=== PATIENT | female | born 1945 | race Caucasian/White ===

== ENCOUNTER 2019-11-19 14:12 | Inpatient (IN) | payer MEDICARE ==
[~2019-11-19] VITALS: Ht 154.9 cm; Wt 53.7 kg
[2019-11-19] MEDS ORDERED: ASPIRIN E.C. 8181 MG PO (14:23)
[2019-11-19] MEDS ORDERED: NOVOLOG 100U100 U/ML SC (14:25)
[2019-11-19] MEDS ORDERED: MELATIN 3 MG-11 TAB PO (14:26)
[2019-11-19] MEDS ORDERED: FOLIC ACID1 MG PO (14:26)
[2019-11-19] MEDS ORDERED: LIPITOR 40MG TA40 MG PO (14:26)
[2019-11-19] MEDS ORDERED: NEXIUM 24HR20 M1 PO (14:28)
[2019-11-19] MEDS ORDERED: PROPRANOLOL HCL40 M2 PO (14:28)
[2019-11-19] MEDS ORDERED: LISINOPRIL20 MG PO (14:29)
[2019-11-19] MEDS ORDERED: LEVEMIR FLEX100 U/ML SQ (14:30)
--- NOTE | 2019-11-19 15:10 | NUR ---
ARRIVES TO ROOM 204 FOR SWINGBED ADMIT FROM [facility]. REQUIRES 2 STAFF ASSIST AND SEVERAL PROMPTS TO COMPLETE TRANSFER FROM [facility] TO W/C. [id number] ACCOMPANIES AND PROVIDES GOOD INFORMATION REGARDING PATIENT'S LIVING SITUATION AND HEALTH HISTORY.
[2019-11-19] MEDS ORDERED: VALIUM 5MG T5 MG/TAB PO (15:39)
--- NOTE | 2019-11-19 15:40 | NUR ---
ADMISSION ASSESSMENT COMPLETE. ALERT AND ORIENTATED. SPEECH CLEAR. TALKS SLOWLY DURING CONVERSATION. HARD OF HEARING; BILAT HEARING AIDES. WEARS GLASSES. PUPILS EQUAL AND BRISKLY REACTIVE TO LIGHT. BANDAID OVER UPPER LT CHEST PORT. HAND CEMENT FINISHING SUPERVISOR EQUAL AND WEAK. REQUIRES ASSISTANCE TO SIT UPRIGHT IN BED. LUNG SOUNDS CTA BILAT. BOWEL SOUNDS ACTIVE X4 QUADS. ABD SOFT AND NONTENDER. PER REPORT FROM NATALY SANCHEZ AT [facility], PATIENT HAD A BM LAST NIGHT. 1+ PITTING EDEMA NOTED TO BILAT ANKLES. PEDAL PULSES STRONG BILAT. SKIN TO FEET DRY AND FLAKING. THERE IS A SCABBED SCRATCH TO THE TOP RT FOOT. PATIENT AND [id number] BOTH VERBALIZE A GOAL TO RETURN HOME. PATIENT LIVES IN A ONE LEVEL HOME ALONE. ALTHOUGH, UNTIL RECENTLY, SHE LIVED WITH HER MOTHER. SHE IS NOW IN A FCI DUE TO DEMENTIA. PRIOR TO HOSPITALIZATION, WAS RECEIVING HOME CARE FOR MEAL ASSISTANCE AND HOUSE CLEANING. UNABLE TO RECALL COMPANY NAME, BUT KNOWS THE MAN IS NAMED [employer]. PATIENT HAS A BATH/SHOWER COMBO WITH A SEAT TO MANEUVER. [id number] REPORTS 2 WEEKS AGO PATIENT WAS AMBULATORY AROUND HER HOUSE WITH A WALKER WITH A HISTORY OF FALLS. GOES ON TO EXPLAIN THAT SHE HAS FALLEN BEFORE AND STAYED ON THE FLOOR FOR 15 HOURS BEFORE OBTAINING HELP; EVEN WITH A CELL PHONE IN REACH. MOST RECENT FALL ALSO ENDED WITH PATIENT STAYING ON THE FLOOR FOR AN UNKNOWN AMOUNT OF TIME. [id number] BELIEVES THIS IS WHY SHE IS SO WEAK. THEY ALSO REPORT TAKING ZOLOFT 100MG PO DAILY AND THIS WAS NOT GIVEN DURING HER HOSPITAL STAY IN [place].
--- NOTE | 2019-11-19 15:45 | NUR ---
HAS DENTURES, BUT DOES NOT WEAR THE BOTTOM ONES.
[2019-11-19 15:47] VITALS: BP 165/76
[2019-11-19 16:06] VITALS: BP 165/76
--- NOTE | 2019-11-19 16:10 | NUR ---
PATIENT HAS PORT TO LT UPPER CHEST. LAB REQUEST TO ACCESS. ATTEMPT X2 WITH NO SUCCESSFUL BLOOD RETURN. PORT FEELS IF IT IS UPSIDE DOWN. RACHELLE BUSINESS COMMUNICATIONS INSTRUCTOR TO BEDSIDE TO ASSESS AND AGREES PORT FEELS IF IT IS FLIPPED OVER. [id number] MENTIONS THAT PORT HAS NEVER BEEN USED. LAB CALLED FOR PERIPHERAL DRAW.
[2019-11-19] MEDS ORDERED: ZOLOFT 100MG100 MG PO (16:17)
[2019-11-19 16:35] LABS: ALBUMIN 3.3 g/dL (3.4-4.8); POTASSIUM 3.7 mmol/L (3.5-5.1)
[2019-11-19 16:36] LABS: CALCIUM 8.9 mg/dL (8.3-10.5)
[2019-11-19 16:37] LABS: EOS # 0.1 (0.04-0.40); HEMATOCRIT 34.9 % (37.0-47.0); HEMOGLOBIN 11.1 g/dL (12.5-16.0); LYMPH# 1.4 (1.50-4.00); MEAN CELL VOLUME 90 fl (78-100); MEAN CORPUSCULAR HEMOGLOBIN 29 pg (27-31); MEAN CORPUSCULAR HGB CONC 32 g/dL (33-37); MEAN PLATELET VOLUME 9.1 fl (7.4-10.4); MONO # 0.8 (0.20-0.80); NEU # 4.5 (1.40-6.50); PLATELET COUNT 268 K/mm3 (130-400); RED CELL DISTRIBUTION WIDTH 13.6 % (11.5-14.5); TOTAL PROTEIN 6.7 g/dL (6.2-8.1); WHITE BLOOD COUNT 6.9 K/mm3 (4.8-10.8)
[2019-11-19 16:39] LABS: TOTAL BILIRUBIN 0.3 mg/dL (0.2-1.2)
--- NOTE | 2019-11-19 18:22 | NUR ---
URINE SPECIMEN COLLECTED AND DELIVERED TO LAB.
[2019-11-19 18:33] LABS: URINE APPEARANCE CLEAR; URINE BILIRUBIN NEGATIVE (NEGATIVE); URINE BLOOD NEGATIVE (NEGATIVE); URINE COLOR YELLOW; URINE GLUCOSE NEGATIVE (NEGATIVE); URINE KETONE NEGATIVE (NEGATIVE); URINE LEUKOCYTE ESTERASE NEGATIVE (NEGATIVE); URINE NITRATE NEGATIVE (NEGATIVE); URINE PROTEIN(semi-quant) 3+ mg/dL (NEGATIVE); URINE UROBILINOGEN NORMAL (NORMAL)
--- NOTE | 2019-11-19 19:13 | NUR ---
REPORT PROVIDED TO MIGDALIA SANCHEZ.
--- NOTE | 2019-11-19 20:30 | NUR ---
Patient resting in bed. Oriented x 4 to time, place,month, year. Pleasant. Answers are delayed but appropriate. Denies pain. States no longer having pain left ankle. HS meds all reviewed and given 2 at a time in applesauce. Swallows without problems. Moderate tremors noted to right hand when holding spoon. Dr. Young notified of tremors. Continent at this time. See assessment.
--- NOTE | 2019-11-19 20:45 | NUR ---
Patient assisted to BSC with walker 1 assist and back to bed. Assistance given with pants up and down. Inner buttucks reddened but joya and barrier cream applied. Rests self back in bed. RLE elevated on pillow and ice pack applied. See assessment. Reports right ankle pain 02/18. HS meds all reviewed and given along with norco 1 tab. Patient requests 2 norcos. Order reads 1 tab q 4 hours prn but in comments reads 1-[address] Young notified and is reviewing order.
--- NOTE | 2019-11-19 23:00 | NUR ---
Patient has been resting with eyes closed. Awakened for HS care and toileting. Up 2 assist pivot transfer to [facility] and voids clear yellow urine. Inner buttucks light pink/blanchable and skin intact. Barrier cream applied. Assisted to rest back in bed. Declines sleeping on side. BLE elevated on pillow. Heels reddened/joya but no pain.
--- NOTE | 2019-11-20 01:59 | NUR ---
Patient has been resting with eyes closed. Respirations with ease. 02 on 2L pnc since 2229.
--- NOTE | 2019-11-20 05:17 | NUR ---
Patient up to BSC max 1 assist. Unsteady and leans backward. Alert and oriented x 4. Smiling. States "I think I had a good night sleep".
[2019-11-20 05:27] VITALS: BP 149/77
--- NOTE | 2019-11-20 08:00 | NUR ---
Complex assessment completed. Though pt is orientated x4, she is during a discussion slow to respond. Does have edema to lower extremeties.
--- NOTE | 2019-11-20 13:00 | NUR ---
Called [employer] at to start authorization for swb stay. Reported by customer service that pt has pending auth (ref #[id number]) already in progress and are awaiting clinicals. Date of admission given to complete all the info they required. Clinicals faxed to as [employer] requested. Given direct number to call ([phone]) for follow up.
[2019-11-20 16:10] VITALS: BP 146/58
--- NOTE | 2019-11-20 18:50 | NUR ---
Report received from Arleth SANCHEZ. Up in recliner with legs elevated. A/O x4. Able to answer all orientations questions, name, , place, Month, year and President. Has some delayed response but also states she is [place]. Denies pain. Has bruising to L dorsal hand and R forearms. +1 edema to bilateral ankles. Assessment completed. Reoriented to call light. Denies wants or needs.
--- NOTE | 2019-11-20 19:02 | NUR ---
Report given to Racheal SANCHEZ
--- NOTE | 2019-11-20 20:00 | NUR ---
Rings call light to use bathroom. States her brief is wet as well. 2 Person Pivot transfer to BSC, needs instructed not to lean backwards. Voids 100 ML of clear yellow urine. Pericares provided. Barrier cream applied. Pivot transfer back to chair.
--- NOTE | 2019-11-20 20:35 | NUR ---
HS medications taken whole in applesauce without difficulty. No SS insulin required for blood sugar of 131.
--- NOTE | 2019-11-20 22:33 | NUR ---
Assisted to BSC and then to bed with 2:1 Pivot transfer. Requires cueing with transfer.
--- NOTE | 2019-11-21 02:53 | NUR ---
Resting well with eyes closed. No signs of pain or distress. Oxygen in place at 2L/NC. Bed alarm on. Call light in reach.
--- NOTE | 2019-11-21 04:29 | NUR ---
Up to [facility] with 2:1 pivot transfer, incontinent and voided 200 ML of clear yellow urine. Took a few steps back to bed from BSC with 1:1 assist of CLOTHING SALES ASSISTANT. CLOTHING SALES ASSISTANT reports patient transferred much better this AM then previous AM. Denies pain.
[2019-11-21 05:54] VITALS: BP 154/73
--- NOTE | 2019-11-21 07:06 | NUR ---
Report to Emily SANCHEZ.
--- NOTE | 2019-11-21 07:13 | NUR ---
REPORT RECEIVED FROM MALIKA AMAYA AT THIS TIME.
--- NOTE | 2019-11-21 08:10 | NUR ---
PT SITTING UPRIGHT IN RECLINER EATING BREAKFAST. DAILY NURSING ASSESSMENT COMPLETED. SCHEDULED MEDICATIONS ADMINISTERED WITHOUT DIFFICULTY WHOLE IN APPLESAUCE. ACCU CHECK RESULT OF 152 THIS AM. 2 UNITS OF SLIDING SCALE INSULIN ADMINISTERED DIRECTED. PT OFFERS NO COMPLAINTS OF PAIN AT THIS TIME. CALL LIGHT WITHIN REACH, WILL CONTINUE TO MONITOR.
--- NOTE | 2019-11-21 14:52 | NUR ---
PT RESTING IN BED QUIETLY WITH EYES CLOSED. NO COMPLAINTS. CALL LIGHT WITHIN REACH, WILL CONTINUE TO MONITOR.
[2019-11-21 17:14] VITALS: BP 138/69
--- NOTE | 2019-11-21 18:50 | NUR ---
REPORT GIVEN TO MALIKA AMAYA AT THIS TIME.
--- NOTE | 2019-11-21 20:17 | NUR ---
Report received from Emily SANCHEZ. Resting supine in bed. A/O x4. Denies pain. Reports feeling "hot". Temp check 100.2 oral. Blood sugars steadily increased throughout the day. Denies feeling ill. Lungs CTA, no noted cough. UA obtained on admission on 11/18. Accu-check at this time. 233. Assessment completed. Incontinent of urine. Monica-cares provided and clean brief applied. Repositioned for comfort. Oxygen applied at 2L per HS routine. Bed alarm on. Call light in reach. Will notify Dr. Young of fever.
--- NOTE | 2019-11-21 20:23 | NUR ---
Dr. Young notified of fever and rising blood sugars. Awaiting orders.
--- NOTE | 2019-11-21 22:16 | NUR ---
Temp recheck 99.7
--- NOTE | 2019-11-22 00:08 | NUR ---
Sleeping, oxgyen in place at 2L/NC. Bed alarm on. Call light in reach.
--- NOTE | 2019-11-22 02:13 | NUR ---
Temp check 98.8 Has been resting well all night. Incontinent of urine, changed and gucci-cares by staff.
[2019-11-22 05:44] VITALS: BP 153/55
--- NOTE | 2019-11-22 05:44 | NUR ---
Remained afebrile rest of night. Awakened and assisted to BSC with 2:1 assist to commode. Clean catch UA obtained and taken to lab by FUGITIVE INVESTIGATOR. FUGITIVE INVESTIGATOR reports improvement with transfers compared to friday. Not leaning backward as bad. Denies pain.
[2019-11-22 06:26] LABS: EOS # 0.2 (0.04-0.40); EOS % 2.9 % (1.0-5.0); HEMATOCRIT 32.7 % (37.0-47.0); HEMOGLOBIN 10.2 g/dL (12.5-16.0); LYMPH# 1.9 (1.50-4.00); MEAN CELL VOLUME 90 fl (78-100); MEAN CORPUSCULAR HEMOGLOBIN 28 pg (27-31); MEAN CORPUSCULAR HGB CONC 31 g/dL (33-37); MEAN PLATELET VOLUME 9.2 fl (7.4-10.4); MONO # 0.7 (0.20-0.80); PLATELET COUNT 258 K/mm3 (130-400); RED BLOOD COUNT 3.65 M/mm3 (4.10-5.30); RED CELL DISTRIBUTION WIDTH 13.4 % (11.5-14.5); WHITE BLOOD COUNT 5.8 K/mm3 (4.8-10.8)
--- NOTE | 2019-11-22 07:15 | NUR ---
Report to Pearl SANCHEZ.
[2019-11-22 07:22] LABS: URINE APPEARANCE HAZY; URINE BILIRUBIN NEGATIVE (NEGATIVE); URINE COLOR LT YELLOW; URINE GLUCOSE NEGATIVE (NEGATIVE); URINE KETONE NEGATIVE (NEGATIVE); URINE PROTEIN(semi-quant) 1+ mg/dL (NEGATIVE); URINE UROBILINOGEN NORMAL (NORMAL)
[2019-11-22 07:23] LABS: URINE BLOOD NEGATIVE (NEGATIVE); URINE LEUKOCYTE ESTERASE NEGATIVE (NEGATIVE); URINE NITRATE NEGATIVE (NEGATIVE); URINE WBC 0-1 /hpf (0-3)
--- NOTE | 2019-11-22 08:00 | NUR ---
PT RESTING IN RECLINER WHEN ASSESSMENT WAS COMPLETED. PT IS AWAKE AND ALERT X4. DENIES PAIN. BS 186 THIS AM, 2 UNITS SLIDING SCALE INSULIN GIVEN. PT DENIES DIZZINESS AT THIS TIME. PT AMBULATES WITH WALKER AND GAIT BELT X1 ASSIST. PULSES PRESENT. BOWEL SOUNDS NOTED TO ALL 4 QUADS, LUNG SOUNDS CLEAR BILAT. PT STATES THAT SHE HAS NO CONCERNS AT THIS TIME. CALL LIGHT IN REACH.
--- NOTE | 2019-11-22 13:21 | NUR ---
Called Juan, Son of Mrs. Holland. Left voice message to return CM phone call.
--- NOTE | 2019-11-22 14:05 | NUR ---
Spoke with Juan Orr he is wanting his Inna Orr to visit with us regarding [employer]. Inna's #[phone]. Telephone - Verbal consent given from Juan at 11/22/2019 at 1345 hrs. Sarah Mendes RN here to witness telphone conset to speak with Inna who assisted with signing up for medicare.
[2019-11-22 17:21] VITALS: BP 154/76
--- NOTE | 2019-11-22 19:50 | NUR ---
HS meds all reviewed and taken 2 at a time in applesauce. Patient rests in bed watching TV. Alert and oriented x 4. Denies pain or needs.
--- NOTE | 2019-11-23 01:33 | NUR ---
Patient rests with eyes closed. Respirations with ease.
--- NOTE | 2019-11-23 05:30 | NUR ---
Patient awakened for toileting. Up 2 assist pivot transfer to BSC. Incontinent of large amount of urine and staff changes, gucci care done. After pivot transfer to bed, patient able to rest self slowly back in bed. Reports yes to slept well this noc.
[2019-11-23 05:44] VITALS: BP 153/82; BP 173/80
[2019-11-23 09:31] LABS: POTASSIUM 4.2 mmol/L (3.5-5.1)
[2019-11-23 09:32] LABS: CALCIUM 9.5 mg/dL (8.3-10.5)
--- NOTE | 2019-11-23 12:19 | NUR ---
Spoke with Juan (DPOA) today regarding in network status for swb stay. Gave education regarding SWB expectations of care for his mom. All questions answered. Juan verbalized understanding and in appreciation.
--- NOTE | 2019-11-23 14:28 | NUR ---
Spoke with Mrs. Holland following SWB weekly meeting. Introduced self and explained role of CM. Mrs. Holland was alert sitting in chair at bedside. Asked to place hearing aids in. She placed one not both hearing aids. Conversation was limited with only one hearing aid. Pt smiled and shook her head yes to many of the questions. did not repeat back understanding. She states everyone is very nice to her and she is wanting to stay for continued needed swb stay. Pt denied any other questions or concerns. Will continue to follow for any discharge needs or concerns.
[2019-11-23 17:04] VITALS: BP 137/78
--- NOTE | 2019-11-23 19:15 | NUR ---
Report received from Pearl SANCHEZ. Patient up min/mod 2 assist with walker to BSC and voids. Assisted with pullup down and up. Patient ambulates slowly and stops a few times requiring verbal cueing. Rests self slowly back in bed. Denies pain. HS meds all reviewed and given in applesauce.
--- NOTE | 2019-11-23 22:30 | NUR ---
Patient rests with eyes closed. Respirations with ease.
--- NOTE | 2019-11-24 04:00 | NUR ---
Patient has been resting with eyes closed through the night. Awakened for toileting. Leans back while transferring to the [facility] x 2 assist for safety and frequent verbal cueing. Incontinent small amount of urine and pullup changed. Voids and rests self back slowly in bed. Denies pain.
[2019-11-24 05:21] VITALS: BP 135/61
--- NOTE | 2019-11-24 07:20 | NUR ---
report received from sharron dillard
--- NOTE | 2019-11-24 08:45 | NUR ---
this nurse in patient's room administering medications. patient's apical heart rate 54. patient has murmur. patient's propranolol held at this time. spoke with crystal rogers notified of heart rate. per sarah hold patient's propranolol for this mornings dose
--- NOTE | 2019-11-24 12:30 | NUR ---
this nurse in patient's room to give scheduled insulin novolog. patient in bathroom at this time. will administer insulin once patient is back from bathroom.
[2019-11-24 18:20] VITALS: BP 161/71
--- NOTE | 2019-11-24 19:20 | NUR ---
report given to sharron dillard
--- NOTE | 2019-11-24 19:30 | NUR ---
Report received from Suzi SANCHEZ. Resting supine in bed. A/O x4. Denies pain. Assessment completed. Accu-check 221 tonight. Will received SS insulin and scheduled Levemier. CHOIR LEADER reports refusing Glucerna supplement, will offer alternatives. Bed alarm on. Call light in reach.
--- NOTE | 2019-11-25 00:40 | NUR ---
Patient has been a 1:1 assist to BR with a walker. Has been continent per HOTEL SALES MANAGER report.
--- NOTE | 2019-11-25 03:27 | NUR ---
Awakened by CLOTH NAPPING SUPERVISOR and taken to BR. Incontinent of small amount of urine in brief. Assisted back to bed. Positioned for comfort. Bed alarm on. Call light in reach.
--- NOTE | 2019-11-25 06:01 | NUR ---
Rested well all shift. No verbalization of pain. Staff into assist with cares PRN.
[2019-11-25 06:08] VITALS: BP 145/73
--- NOTE | 2019-11-25 07:03 | NUR ---
Report to Fabienne SANCHEZ.
--- NOTE | 2019-11-25 08:00 | NUR ---
PT UP IN CHAIR EATING BREAKFAST, DENIES PAIN, FULLY ALERT AND ORIENTED, DENIES NEED, DENIES ANY ACUTE CHANGES, COMPLEX ASSESSMENT COMPLETED AND CHARTED, PT STABLE AT THIS TIME, USING CALL LIGHT APPOPRIATELY, CALL LIGHT WITHIN REACH AND CHAIR ALARM ON UPON EXITING ROOM
--- NOTE | 2019-11-25 16:14 | NUR ---
PT REPORTS TO APOLLO STARKS OCCUPATIONAL THERAPIST THAT SHE IS HEARING A MOUSTAPHA VOICE AND A RADIO PLAYING, APOLLO STARKS AT BEDSIDE AT THIS TIME AND REPORTS THERE WAS NO MAN SPEAKING OR RADIO PLAYING NEXT DOOR, PT STATES SHE "HEARS THIS SAME VOICE" PRIOR TO THIS ADMISSION, CRISTAL SMITH APRN NOTIFIED
[2019-11-25 17:12] VITALS: BP 159/79
--- NOTE | 2019-11-25 17:49 | NUR ---
PT DENIES HEARING FURTHER VOICES OR MEN AT THIS TIME, PT STATES "I HEAR THEM A LOT, THIS HAS BEEN GOING ON FOR A LONG TIME, EVEN BEFORE I WAS HERE," WHEN ASKED WHAT SHE HEARS SHE REPEATS MULTIPLE TIMES SHE HEARS "A MAN SINGING ON THE RADIO," PT ENCOURAGED TO NOTIFY STAFF IF THE VOICES BECOME MORE INTENSE OR OUTSIDE OF HER NORM, CRISTAL SMITH APRN NOTIFIED OF PT'S COMMENTS
--- NOTE | 2019-11-25 20:39 | NUR ---
PT SITTING UP IN BED WATCHING TV, ALERT, OX4, ALTHOUGH SEEMS SLIGHTLY CONFUSED AT TIMES, POSSIBLY JUST [place]. PT DENIES ANY PAINS OR OTHER CONCERNS AT THIS TIME. CALL LIGHT WITHIN REACH, BED EXIT ALARM ACTIVATED.
[2019-11-26 05:51] VITALS: BP 145/78
--- NOTE | 2019-11-26 06:25 | NUR ---
PT HAS SLEPT THROUGH THE NIGHT WITHOUT ANY ISSUES. CALL LIGHT WITHIN REACH, BED EXIT ALARM ACTIVATED.
[2019-11-26 10:41] LABS: EOS # 0.2 (0.04-0.40); EOS % 2.4 % (1.0-5.0); HEMATOCRIT 34.3 % (37.0-47.0); HEMOGLOBIN 10.7 g/dL (12.5-16.0); LYMPH# 1.4 (1.50-4.00); MEAN CELL VOLUME 90 fl (78-100); MEAN CORPUSCULAR HEMOGLOBIN 28 pg (27-31); MEAN CORPUSCULAR HGB CONC 31 g/dL (33-37); MEAN PLATELET VOLUME 9.3 fl (7.4-10.4); MONO # 0.5 (0.20-0.80); NEU # 5.3 (1.40-6.50); PLATELET COUNT 357 K/mm3 (130-400); RED BLOOD COUNT 3.83 M/mm3 (4.10-5.30); RED CELL DISTRIBUTION WIDTH 13.4 % (11.5-14.5); WHITE BLOOD COUNT 7.5 K/mm3 (4.8-10.8)
[2019-11-26 11:06] LABS: POTASSIUM 4.3 mmol/L (3.5-5.1)
[2019-11-26 11:07] LABS: CALCIUM 8.9 mg/dL (8.3-10.5)
--- NOTE | 2019-11-26 11:41 | NUR ---
Spoke with Farhana this morning. She was unable to put her hearing aid in this morning. CM spoke loudly and she appeared to be hearing well and understood conversation. Asked if she had an alternative plan for discharge to home. she thought that she may be able to stay with her son for a limited amount of time with home health. She would prefer to go home alone with home health. Gave her options to consider. Will evaluate home d/c plan next week to see if she is progressing. Asked if she had a copy of her DPOA. She states her son Juan has it.
--- NOTE | 2019-11-26 12:59 | NUR ---
PT'S SON CHRISTOPHER NOTIFIED AT THIS TIME, STAFF REQUESTING SON TO BRING THIS PT A FEW CHANGES OF CLEAN CLOTHES SHE IS RUNNING OUT, PT'S SON STATES HE IS COMING UP TO SEE HER TOMORROW AND WILL STOP BY HER HOUSE AND BRING HER SOME FRESH CLOTHES TO CHANGE INTO, NO FURTHER QUESTIONS OR CONCERNS AT THIS TIME
--- NOTE | 2019-11-26 13:23 | NUR ---
Attempted to call Juan, pt's son/DPOA, to request DPOA paperwork and discuss pt's progress and discharges plans. No answer but left message requesting return call.
[2019-11-26 16:16] VITALS: BP 148/78
--- NOTE | 2019-11-26 17:35 | NUR ---
PT UP IN CHAIR, STABLE, NO ACUTE CHANGES THIS SHIFT, SMILING AFFECT, ALERT AND ORIENTED, CONTINENT OF BOWEL AND BLADDER THIS SHIFT, DENIES PAIN ALL OF SHIFT, DENIES NEEDS, CALL LIGHT WITHIN REACH AND CHAIR ALARM ON AT THIS TIME
--- NOTE | 2019-11-26 19:00 | NUR ---
Report received from Fabienne Miller RN.
--- NOTE | 2019-11-26 19:52 | NUR ---
Pt resting in bed awake and a/o x 3. Slightly slow to responsed to questions. Follows directions without difficulty. Denied having any pain, SOB. Used incentive spirometer x 10, reached 750-1000mls. Offered evening snack after accu-chek. Pt asked for peanut butter and crackers.
--- NOTE | 2019-11-26 19:53 | NUR ---
Pupils rafi, answers questions appropriately
--- NOTE | 2019-11-27 01:15 | NUR ---
Report received from John SANCHEZ. Resting in bed with eyes closed. No signs of pain or distress. Oxygen in place at 2L. Bed alarm on. Call light in reach.
--- NOTE | 2019-11-27 03:53 | NUR ---
Calls for assist to BR. Incontinent of urine. Bed pad, brief change. Monica-cares provided by LOCKSTITCH BACK MAKER. Voids. Assisted back to bed. Denies pain. Oxygen in place at 2L/NC. Bed alarm on. Call light in reach.
[2019-11-27 05:20] VITALS: BP 169/75
--- NOTE | 2019-11-27 07:12 | NUR ---
Report to Norma SANCHEZ.
--- NOTE | 2019-11-27 10:18 | NUR ---
Pt ambulated to bathroom with 1 assist and walker, was incontinent, had med loose BM. Pt assisted with cleaning self. Pt back in bed, call light in reach, bed alarm on.
--- NOTE | 2019-11-27 11:40 | NUR ---
Pt sitting in room, denies pain, call light in reach, has no other needs at this time.
--- NOTE | 2019-11-27 14:58 | NUR ---
Report given to LAURA Bhatt.
--- NOTE | 2019-11-27 15:00 | NUR ---
Report received from LAURA Green.
--- NOTE | 2019-11-27 15:15 | NUR ---
Patient sitting in chair visiting w/ family member. Denies any pain or needs at this time. Call light w/in reach. Encouraged pt to call w/ any needs.
[2019-11-27 16:47] VITALS: BP 138/77
--- NOTE | 2019-11-27 19:02 | NUR ---
Report given to LAURA Lopez.
--- NOTE | 2019-11-27 19:56 | NUR ---
Resting in bed, eyes closed with even none labored respirations. Opens eyes when spoken too. Denies having any pain or SOB. Sp02 94%-95% on room air. Pulse 59, respirations 18 and even. Pupils equal and reactive to light. Equeal strength in upper and lower extremities. Follows instructions without difficulty.
--- NOTE | 2019-11-27 19:58 | NUR ---
Oxygen applied at 2L/NC. Sp02 98%
[2019-11-28 05:58] VITALS: BP 152/65
--- NOTE | 2019-11-28 07:11 | NUR ---
Report to Radha Lagunas RN
[2019-11-28 17:21] VITALS: BP 147/76
--- NOTE | 2019-11-28 19:00 | NUR ---
Report received from Pearl Lagunas RN
--- NOTE | 2019-11-28 20:00 | NUR ---
Oxygen applied at 2L/NC. Bed alarm set and call light with in reach.
[2019-11-29 06:10] VITALS: BP 141/82
[2019-11-29 17:18] VITALS: BP 119/76
--- NOTE | 2019-11-29 19:45 | NUR ---
Report receive and cared assumed. Resting in bed with HOB elevated, watching TV. A/O x4. No hesitation noted while answering questions. Denies pain. Assessment completed at this time. Assisted up to BR with SBA and walker. Voids 200 ML of clear yellow urine. Assisted back to bed. Able to get legs in and out of bed independently. Bed alarm on. Call light in reach. Denies questions, wants, or needs.
--- NOTE | 2019-11-29 21:00 | NUR ---
Up to BR with SBA and walker, gait steady. Voids 200 ML of pale yellow urine. Assisted back to bed. Sits on EOB to take PO medications, takes whole in applesauce without difficulty. PRN Melatonin taken for sleep. Blood sugar 260 MG/DL. 6 Units of SS Humalog, along with scheduled 10 Units of Levemier given SQ in R thigh. Able to get own legs into bed and positioned for comfort. O2 applied at 2L/NC per her home HS routine. Bed alarm on. Call light in reach. Denies questions, wants or needs at this time.
--- NOTE | 2019-11-30 05:15 | NUR ---
Rested well all shift. Up to BR with SBA PRN. Denies pain.
[2019-11-30 06:02] VITALS: BP 139/78
--- NOTE | 2019-11-30 07:03 | NUR ---
Report to Pearl SANCHEZ.
[2019-11-30 16:14] VITALS: BP 158/67
--- NOTE | 2019-11-30 19:45 | NUR ---
Report received from Pearl SANCHEZ. Resting supine in bed watching TV. A/O x4. Denies pain. Assesment completed. Wandering about her "test results". Advised that scans at [facility] showed no acute findings. Reviewed medications and POC. Denies further wants or needs. Bed alarm on. [facility].
--- NOTE | 2019-12-01 03:21 | NUR ---
Rests with eyes closed. No signs of pain or distress. Bed alarm on. Call light in reach.
[2019-12-01 05:43] VITALS: BP 148/76
--- NOTE | 2019-12-01 07:21 | NUR ---
Report to Chrissy SANCHEZ.
--- NOTE | 2019-12-01 09:01 | NUR ---
Report recevied form LAURA Waters. Assessment complete. Meds given in applesause. Pateint is in bedside chair, denies pain. VS and orders reviewed. No SS insulin given. Patient has some tremors. Call light in reach, will continue to monitor.
[2019-12-01 16:10] VITALS: BP 149/80
--- NOTE | 2019-12-01 18:24 | NUR ---
Report given to LAURA Waters
--- NOTE | 2019-12-01 21:00 | NUR ---
Report from Chrissy SANCHEZ. Resting in bed, A/O x4. Denies pain. Blood sugar 247 MG/DL. 4 Units of SS Humalog given SQ along with Scheduled 10 units of Levemier SQ to RLQ of abdomen. Takes PO medications whole in applesauce. Assessment completed. Up to BR with 1:1 assist and walker, gait steady. Back to be with Oxygen placed at 2L/NC per home routine. Bed alarm on. Call light in reach.
--- NOTE | 2019-12-02 00:58 | NUR ---
Rests quietly with eyes closed. Oxygen in place at 4 L/NC. No signs of pain or distress. Bed alarm on. Call light in reach.
--- NOTE | 2019-12-02 03:03 | NUR ---
Awakens and calls for assist to BR. Incontinent of urine. Monica-cares provided. Assisted back to bed. Denies pain. Bed alarm on. Call light in reach.
[2019-12-02 05:29] VITALS: BP 140/85
--- NOTE | 2019-12-02 07:11 | NUR ---
Report to Misty SANCHEZ.
--- NOTE | 2019-12-02 07:15 | NUR ---
REPORT RECEIVED FROM DAMON AMAYA.
--- NOTE | 2019-12-02 12:20 | NUR ---
SITTING IN CHAIR EATING LUNCH. FAMILY MEMBER PRESENT. DENIES NEEDS AT THIS TIME.
--- NOTE | 2019-12-02 14:19 | NUR ---
Spoke with Son Juan today on the phone and advised that his mom is ready to go home on 12/03/19 with home health. Son is looking into [employer] service and would like his mom to stay a couple more days. Explained that she was ready to go and insurance could deny payment. Anticipated discharge is 12/03/19 Home with Home Health. Received DPOA papers from Juan this morning. Placed on Chart.
[2019-12-02 17:47] VITALS: BP 136/64
--- NOTE | 2019-12-02 19:00 | NUR ---
ASSESSMENT COMPLETE. PATIENT AMBULATES TO BATHROOM WITH WALKER AND A STEADY GAIT. NO PAIN REPORTED. NO CONCERNS OR QUESTIONS AT THIS TIME.
--- NOTE | 2019-12-02 19:45 | NUR ---
REPORT PROVIDED TO YON SANCHEZ.
[2019-12-03 06:02] VITALS: BP 129/80
--- NOTE | 2019-12-03 07:18 | NUR ---
Report given to LAURA Loving.
--- NOTE | 2019-12-03 08:29 | NUR ---
PT UP IN CHAIR, ALERT AND ORIENTED, SMILING, COMPLEX ASSESSMENT CHARTED AND STABLE, DENIES PAIN, DENIES NEEDS, MENTIONS EXCITEMENT ABOUT GOING HOME TODAY, STATES SHE IS UNSURE OF A TIME OR WHO IS PICKING HER UP, WILL CLARIFY WITH CASE MANAGEMENT ABOUT DC TRANSPORTATION
--- NOTE | 2019-12-03 08:33 | NUR ---
PTS DAUGHTER AKIL IS ARRIVING AROUND 1400 TO PICK PT UPJJ WITH CASE MANAGEMENT SETTING UP [facility] TO PROVIDE FURTHER ASSISTANCE AT HOME, FAMILY REPORTS THEY ARE SETTING UP "[employer]" FOR [employer] AT HOME TO HELP WITH RUNNING ERRANDS/HOUSEWORK/ETC.
[2019-12-03] MEDS ORDERED: PROPRANOLOL HCL40 M2 PO (13:48)
[2019-12-03] MEDS ORDERED: LISINOPRIL20 MG PO (13:48)
[2019-12-03] MEDS ORDERED: ASPIRIN E.C. 8181 MG PO (13:48)
[2019-12-03] MEDS ORDERED: LIPITOR 40MG TA40 MG PO (13:48)
[2019-12-03] MEDS ORDERED: CARBIDOPA/LEVODOPA PO (13:49)
[2019-12-03] MEDS ORDERED: ZOLOFT 100MG100 MG PO (13:49)
[2019-12-03] MEDS ORDERED: VALIUM 5MG T5 MG/TAB PO (13:49)
[2019-12-03] MEDS ORDERED: NEXIUM 24HR20 M1 PO (13:50)
--- NOTE | 2019-12-03 13:50 | NUR ---
FOLLOW UP APPT SCHEDULED FOR THURSDAY 12/07 @ 1575
[2019-12-03] MEDS ORDERED: LEVEMIR FLEX100 U/ML SQ (13:51)
[2019-12-03] MEDS ORDERED: FOLIC ACID1 MG PO (13:51)
[2019-12-03] MEDS ORDERED: MELATIN 3 MG-11 TAB PO (13:51)
[2019-12-03] MEDS ORDERED: NOVOLOG FLEX100 U/ML SQ (14:02)
--- NOTE | 2019-12-03 14:20 | NUR ---
ALL DC PAPERWORK REVIEWED AND UNDERSTOOD THOROUGHLY BY PT AND DAUGHTER IN LAW, ALL FOLLOW UP APPOINTMENTS AND NEW MEDS REVIEWED AND UNDERSTOOD, PT EDUCATED TO NOT BEGIN SLIDING SCALE INSULIN PRIOR TO STARTING HOME HEALTH THEY ARE GOING TO EDUCATE HER FURTHER ON THIS PER RACHELLE ACEVEDO, PT REPORTS SHE IS FLUENT ON CHECKING HER BLOOD GLUCOSE LEVELS AT HOME, DENIES FURTHER QUESTIONS OR NEEDS, ALL BELONGINGS SENT WITH PT, NO FURTHER QUESTIONS AT THIS TIME, PT LEAVES IN STABLE CONDITION
== END 2019-12-03 14:20 | disposition home health service (06) | DRG 948 ==
LOC: MED/SURG 14:12
PROVIDERS: Family Medicine; ADMIT Nurse Practitioner Primary Care
DX: R53.81 Other malaise (principal); J44.9 Chronic obstructive pulmonary disease, unspecified; I11.0 Hypertensive heart disease with heart failure; I50.9 Heart failure, unspecified; J84.10 Pulmonary fibrosis, unspecified; E11.9 Type 2 diabetes mellitus without complications; Z79.82 Long term (current) use of aspirin; Z85.3 Personal history of malignant neoplasm of breast; Z79.4 Long term (current) use of insulin; Z87.891 Personal history of nicotine dependence; Z88.0 Allergy status to penicillin; Z88.2 Allergy status to sulfonamides; Z88.6 Allergy status to analgesic agent; Z91.81 History of falling
CPT/HCPCS: J1650; J1815